=== PATIENT | male | born 1990 | race Two or more races ===

== ENCOUNTER 2021-04-27 02:18 | Emergency (ER) | payer OTHER, MEDICAID ==
[~2021-04-27] VITALS: Ht 170.2 cm; Wt 67.0 kg
[2021-04-27] MEDS ORDERED: ACETAMINOPHEN WITH CODEINE 300/30MG TABLET PO ONE (03:00)
[2021-04-27] MEDS ORDERED: BACITRACIN ZINC OINT UDPKT TOP ONE (03:00)
[2021-04-27] MEDS ORDERED: TETANUS, DIPHTHERIA, PERTUSSIS VAC/PF 0.5ML (>10YR OLD) IM ONE (03:00)
[2021-04-27] MEDS ORDERED: LIDOCAINE HCL/EPINEPHRINE 1%-EPI 1:100,000 20 ML VIAL INFIL ONE (03:00)
[2021-04-27] MEDS ORDERED: FLUORESCEIN SODIUM 1MG/STRIP RIGHTEYE ONE (05:00)
[2021-04-27] MEDS ORDERED: TETRACAINE 0.5% OPHTH DROPS 4ML RIGHTEYE ONE (05:00)
[2021-04-27] MEDS ORDERED: BO1 TP (05:44)
[2021-04-27] MEDS ORDERED: CEPH500C2 MT (05:44)
[2021-04-27] MEDS ORDERED: SODI88SP18 BOTHNSTRLS (05:44)
[2021-04-27] MEDS ORDERED: T3 PO (05:44)
[2021-04-27 06:06] VITALS: BP 131/84
== END 2021-04-27 06:11 | disposition home or self-care (01) ==
LOC: ER 02:18
DX: S01.81XA Laceration without foreign body of other part of head, initial encounter (principal); Y35.893A Legal intervention involving other specified means, suspect injured, initial encounter; Y93.89 Activity, other specified; Y92.89 Other specified places as the place of occurrence of the external cause
CPT/HCPCS: 12016; 70486; 90471; 90715; 99284; J3490

== ENCOUNTER 2022-06-08 14:05 | Emergency (ER) | payer MEDICAID, OTHER ==
[~2022-06-08] VITALS: Ht 170.2 cm; Wt 69.0 kg
[~2022-06-08 14:05] MED LIST: BO1 TP; CEPH500C2 MT; SODI88SP18 BOTHNSTRLS; T3 PO
[2022-06-08] MEDS ORDERED: LIDOCAINE HCL/PF 1% 10 MG/ML 5ML VIAL INFIL ONE ×3 (14:45→18:45)
[2022-06-08] MEDS ORDERED: BACITRACIN ZINC OINT UDPKT TOP ONE (14:45)
[2022-06-08] MEDS ORDERED: SULF1TAB48 MT (18:29)
[2022-06-08] MEDS ORDERED: HYDR-4001 MT (18:29)
[2022-06-08] MEDS ORDERED: IBUP-2029 MT (18:29)
[2022-06-08 20:16] VITALS: BP 133/86
== END 2022-06-08 20:18 | disposition home or self-care (01) ==
LOC: ER 14:05
DX: S61.412A Laceration without foreign body of left hand, initial encounter (principal); I10 Essential (primary) hypertension; X58.XXXA Exposure to other specified factors, initial encounter; Y93.89 Activity, other specified; Y92.89 Other specified places as the place of occurrence of the external cause; Y99.8 Other external cause status
CPT/HCPCS: 12001; 73130; 99283; J3490; Z7610